=== PATIENT | male | born 1945 | race African-American/Black ===

== ENCOUNTER 2016-12-04 08:50 | Emergency (ER) | payer MEDICARE ==
[2011-03-17 12:37] VITALS: BMI 23.0
== END 2016-12-04 10:48 | disposition home or self-care (01) ==
LOC: D.ER 08:50
DX: T16.1XXA Foreign body in right ear, initial encounter (principal); X58.XXXA Exposure to other specified factors, initial encounter; Y93.89 Activity, other specified; Y92.019 Unspecified place in single-family (private) house as the place of occurrence of the external cause; F17.200 Nicotine dependence, unspecified, uncomplicated; K21.9 Gastro-esophageal reflux disease without esophagitis; I10 Essential (primary) hypertension; E88.09 Other disorders of plasma-protein metabolism, not elsewhere classified

== ENCOUNTER 2017-12-29 23:04 | Observation (INO) | payer MEDICARE ==
[~2017-12-29] VITALS: Ht 157.5 cm; Wt 56.7 kg
[2017-12-29 23:48] LABS: BASOPHILS 1.2 % (0-2); EOSINOPHILS 3.2 % (0-7); HEMATOCRIT 41.9 % (42.0-54.0); HEMOGLOBIN 14.5 g/dL (13.5-17.5); LYMPHOCYTES 47.2 % (15-50); MCH 28.8 pg (26.0-34.0); MCHC 34.6 g/dL (31.0-37.0); MCV 83.3 fL (80.0-100.0); MEAN PLATELET VOLUME 11.4 fL (7.4-10.4); MONOCYTES 14.1 % (2-11); NEUTROPHILS 34.3 % (40-80); RBC 5.03 10x6/uL (4.20-6.10); RDW 14.5 % (11.5-14.5); WBC 3.4 10x3/uL (4.8-10.8)
[2017-12-29 23:49] LABS: PLATELET COUNT 194 10x3/uL (130-400)
[2017-12-29 23:56] LABS: INR 1.01 (0.85-1.17); PROTIME 12.9 SECONDS (11.6-15.0)
[2017-12-30 00:21] LABS: APPEARANCE CLEAR (CLEAR); BILIRUBIN NEGATIVE (NEGATIVE); COLOR YELLOW (YELLOW); GLUCOSE NEGATIVE (NEGATIVE); KETONE NEGATIVE (NEGATIVE); NITRITE NEGATIVE (NEGATIVE); PROTEIN NEGATIVE (NEGATIVE); SPECIFIC GRAVITY 1.025 (1.005-1.020)
[2017-12-30 00:30] LABS: ALBUMIN 3.7 g/dL (3.4-5.0); ALKALINE PHOSPHATASE 84 U/L (46-116); ALT (SGPT) 24 U/L (10-68); AMYLASE - SERUM 111 U/L (25-115); BILIRUBIN - TOTAL 0.57 mg/dL (0.2-1.3); C-REACTIVE PROTEIN 0.4 mg/dL (0.0-0.9); CALC OSMOLALITY 275 mosm/kg (275-300); CARBON DIOXIDE 27.8 mmol/L (21.0-32.0); CHLORIDE - SERUM 101 mmol/L (98-107); CREATINE KINASE 519 UL (21-232); CREATININE - SERUM 1.1 mg/dL (0.6-1.3); GLUCOSE 105 mg/dL (74-106); LIPASE 157 U/L (73-393); MAGNESIUM - SERUM 2.3 mg/dL (1.8-2.4); PRO BNP 38 pg/mL (0-125); PROTEIN - SERUM 7.9 g/dL (6.4-8.2); SODIUM 139 mmol/L (136-145); UREA NITROGEN 8 mg/dL (7-18); eGFR NON AFRICAN AMERICAN 69 mL/min (90-120)
[2017-12-30 00:34] LABS: POTASSIUM - SERUM 2.7 mmol/L (3.5-5.1); TROPONIN-I < 0.017 ng/mL (0.000-0.060)
[2017-12-30 00:35] LABS: CKMB 2.3 U/L (0.0-3.6)
[2017-12-30] MEDS ORDERED: REGLAN10 MG PO (03:20)
[2017-12-30 06:30] VITALS: Ht 157.5 cm; Wt 56.7 kg
[2017-12-30 08:29] LABS: BASOPHILS 0.9 % (0-2); EOSINOPHILS 2.2 % (0-7); HEMATOCRIT 35.8 % (42.0-54.0); HEMOGLOBIN 12.4 g/dL (13.5-17.5); LYMPHOCYTES 45.5 % (15-50); MCH 28.8 pg (26.0-34.0); MCHC 34.6 g/dL (31.0-37.0); MCV 83.1 fL (80.0-100.0); MEAN PLATELET VOLUME 11.3 fL (7.4-10.4); MONOCYTES 12.2 % (2-11); NEUTROPHILS 39.2 % (40-80); PLATELET COUNT 168 10x3/uL (130-400); RBC 4.31 10x6/uL (4.20-6.10); RDW 14.2 % (11.5-14.5); WBC 3.2 10x3/uL (4.8-10.8)
[2017-12-30 08:46] LABS: ALKALINE PHOSPHATASE 66 U/L (46-116); ALT (SGPT) 20 U/L (10-68); BILIRUBIN - TOTAL 0.64 mg/dL (0.2-1.3); CARBON DIOXIDE 27.3 mmol/L (21.0-32.0); CHLORIDE - SERUM 106 mmol/L (98-107); CREATININE - SERUM 0.9 mg/dL (0.6-1.3); GLUCOSE 94 mg/dL (74-106); PROTEIN - SERUM 6.8 g/dL (6.4-8.2); SODIUM 142 mmol/L (136-145); eGFR NON AFRICAN AMERICAN 88 mL/min (90-120)
[2017-12-30 08:49] LABS: CALC OSMOLALITY 279 mosm/kg (275-300); UREA NITROGEN 5 mg/dL (7-18)
[2017-12-30 08:50] LABS: POTASSIUM - SERUM 2.8 mmol/L (3.5-5.1)
[2017-12-30 09:20] VITALS: BP 148/883
[2017-12-30 11:43] VITALS: BP 170/71
[2017-12-30 20:00] VITALS: BP 174/88
[2017-12-31] VITALS: BP 192/90
[2017-12-31 04:00] VITALS: BP 162/91
[2017-12-31 05:10] LABS: BASOPHILS 0.2 % (0-2); EOSINOPHILS 1.9 % (0-7); IMMATURE GRANULOCYTES 0.2 % (0-5); LYMPHOCYTES 23.8 % (15-50); MCH 28.8 pg (26.0-34.0); MCHC 34.1 g/dL (31.0-37.0); MCV 84.4 fL (80.0-100.0); MEAN PLATELET VOLUME 11.3 fL (7.4-10.4); MONOCYTES 9.5 % (2-11); NEUTROPHILS 64.4 % (40-80); PLATELET COUNT 168 10x3/uL (130-400); RBC 4.86 10x6/uL (4.20-6.10); RDW 14.2 % (11.5-14.5)
[2017-12-31 05:11] LABS: WBC 4.3 10x3/uL (4.8-10.8)
[2017-12-31 05:40] LABS: ALBUMIN 3.1 g/dL (3.4-5.0); ALKALINE PHOSPHATASE 75 U/L (46-116); ALT (SGPT) 23 U/L (10-68); BILIRUBIN - TOTAL 0.52 mg/dL (0.2-1.3); CALC OSMOLALITY 279 mosm/kg (275-300); CALCIUM 8.2 mg/dL (8.5-10.1); CARBON DIOXIDE 27.4 mmol/L (21.0-32.0); CHLORIDE - SERUM 104 mmol/L (98-107); GLUCOSE 129 mg/dL (74-106); POTASSIUM - SERUM 2.8 mmol/L (3.5-5.1); PROTEIN - SERUM 7.3 g/dL (6.4-8.2); SODIUM 141 mmol/L (136-145); UREA NITROGEN 4 mg/dL (7-18); eGFR NON AFRICAN AMERICAN 78 mL/min (90-120)
[2017-12-31] MEDS ORDERED: CARAFATE1 G/10 ML PO (07:02)
[2017-12-31] MEDS ORDERED: PROTONIX40 MG PO (07:04)
[2017-12-31] MEDS ORDERED: PEPCID20 MG PO (07:05)
[2017-12-31 09:01] VITALS: BP 156/87
[2017-12-31 15:45] VITALS: BP 158/73
== END 2017-12-31 18:24 | disposition home or self-care (01) ==
LOC: D.ER 23:04 → D.M2 12-30 02:49 → OBSVTIME 12-30 02:49 → D.M2 12-31 18:24
PROVIDERS: Family Medicine; Nurse Practitioner Family
DX: K22.2 Esophageal obstruction (principal); K59.8 Other specified functional intestinal disorders; T18.128A Food in esophagus causing other injury, initial encounter; X58.XXXA Exposure to other specified factors, initial encounter; E87.6 Hypokalemia; I10 Essential (primary) hypertension; Z95.0 Presence of cardiac pacemaker

== ENCOUNTER 2018-01-13 19:28 | Emergency (ER) | payer MEDICARE ==
[~2018-01-13 19:28] MED LIST: CARAFATE1 G/10 ML PO; PEPCID20 MG PO; PROTONIX40 MG PO; REGLAN10 MG PO
[2018-01-13 19:53] LABS: BASOPHILS 0.5 % (0-2); EOSINOPHILS 2.4 % (0-7); HEMATOCRIT 38.5 % (42.0-54.0); HEMOGLOBIN 13.1 g/dL (13.5-17.5); LYMPHOCYTES 27.1 % (15-50); MCV 85.4 fL (80.0-100.0); MONOCYTES 11.2 % (2-11); NEUTROPHILS 58.8 % (40-80); PLATELET COUNT 178 10x3/uL (130-400); RBC 4.51 10x6/uL (4.20-6.10); RDW 15.2 % (11.5-14.5); WBC 4.1 10x3/uL (4.8-10.8)
[2018-01-13 20:04] LABS: APPEARANCE CLEAR (CLEAR); BILIRUBIN NEGATIVE (NEGATIVE); COLOR YELLOW (YELLOW); GLUCOSE NEGATIVE (NEGATIVE); KETONE NEGATIVE (NEGATIVE); NITRITE NEGATIVE (NEGATIVE); PROTEIN NEGATIVE (NEGATIVE); SPECIFIC GRAVITY 1.025 (1.005-1.020); UROBILINOGEN NORMAL (NORMAL)
[2018-01-13 20:09] LABS: BACTERIA MODERATE /hpf (NONE SEEN); EPITHELIAL CELLS OCC /hpf (0-5); MUCUS >1+ /lpf (NONE SEEN); RED CELLS - URINE 0-5 /hpf (0-5); WHITE CELLS - URINE 0-5 /hpf (0-5)
[2018-01-13 20:17] LABS: ALKALINE PHOSPHATASE 69 U/L (46-116); ALT (SGPT) 18 U/L (10-68); BILIRUBIN - TOTAL 0.52 mg/dL (0.2-1.3); CALC OSMOLALITY 278 mosm/kg (275-300); CALCIUM 8.3 mg/dL (8.5-10.1); CHLORIDE - SERUM 108 mmol/L (98-107); CREATININE - SERUM 1.1 mg/dL (0.6-1.3); GLUCOSE 108 mg/dL (74-106); POTASSIUM - SERUM 3.4 mmol/L (3.5-5.1); PROTEIN - SERUM 7.3 g/dL (6.4-8.2); SODIUM 141 mmol/L (136-145); UREA NITROGEN 5 mg/dL (7-18); eGFR NON AFRICAN AMERICAN 69 mL/min (90-120)
[2018-01-13 20:24] LABS: CREATINE KINASE 85 UL (21-232); PRO BNP 59 pg/mL (0-125)
[2018-01-13 20:28] LABS: TROPONIN-I < 0.017 ng/mL (0.000-0.060)
== END 2018-01-13 22:45 | disposition home or self-care (01) ==
LOC: D.ER 19:28
PROVIDERS: Family Medicine
DX: R53.1 Weakness (principal); N39.0 Urinary tract infection, site not specified; R11.0 Nausea; I10 Essential (primary) hypertension

== ENCOUNTER 2018-01-17 10:53 | Day surgery (SDC) | payer MEDICARE ==
--- NOTE | ~2018-01-17 | OP ---
PATIENT NAME: VALORIE SHEPHERD MEDICAL RECORD: [id number] :41 LOCATION:[facility] ADMISSION DATE: SURGEON: VI FRIAS MD DATE OF OPERATION: 01/17/2018 PROCEDURE: EGD with balloon dilatation. EGD with biopsy. SURGEON: Vi Frias MD, gastroenterology SCOPE: Olympus video gastroscope and a CRE Microvasive balloon to 25-Tajik. INDICATION FOR THIS PROCEDURE: The patient has significant ongoing dysphagia with achalasia, distal esophageal stricture, and was recently seen on 12/30/2017 for removal of a food impaction from the distal esophageal area. At that time, we attempted to address the distal esophageal stricture. I believe this is a benign stricture, which is recurring. The patient had a TIVA anesthesia for this procedure and received 180 mg of propofol, O2 at 4 liters. FINDINGS: Informed consent was given. The patient was made comfortable with the above medications. After reaching an adequate level of sedation by slow IV push, the patient was placed on his left side. The endoscope was then advanced under direct visualization through the posterior pharyngeal area and immediately we noted a copious amount of thick retained saliva and liquids. This was quickly suctioned. It did encompass the entire esophagus from 20-40 cm. After removal of this impaction of food as well as thickened saliva, we did identify the distal esophageal stricture, which was very edematous and erythematous and certainly narrowed. We placed a CRE Microvasive balloon through this area and gently dilated sequentially over a 3-4 minute. We went from 18-Tajik to 25-Tajik, holding the balloon every couple centimeters for at least a minute. After removal of the balloon, we attempted to advance the scope through this area, but due to angulation, we were unable to push into the cardia. We did biopsy the tissue and the scope was then withdrawn. IMPRESSION: 1. Global food impaction with liquid food as well as thickened saliva from 20 cm in the upper esophageal sphincter to the distal esophageal sphincter at 40 cm. 2. The area of erythematous and inflamed distal esophageal stricture gently dilated from 18-Tajik to 25-Tajik, but we were unable to pass the scope through this area and biopsies were obtained. PLAN: We will continue the patient's present medications to include Protonix at a dose of 40 mg p.o. b.i.d., Carafate slurry 1 gram p.o. q.i.d., famotidine 20 mg b.i.d. We will repeat the EGD in 2 weeks to again attempt to dilate the distal esophageal area. The patient should follow a strict full liquid diet. No anti-inflammatory drugs or aspirin please. TRANSINT:[id number] Voice Confirmation ID: [id number] DOCUMENT ID: [id number] OPERATIVE REPORT [id number] VALORIE SHEPHERD BRENDA MD at 1543 CC: [id number] DICTATION DATE: 01/17/18 1506 PRELIMINARY SCHOOL PSYCHOLOGIST: 01/17/18 1601 [facility] 01/17/18 [id number] [place] [address]
[2018-01-17 12:21] LABS: HEMATOCRIT 40.3 % (42.0-54.0); HEMOGLOBIN 13.7 g/dL (13.5-17.5); MCV 85.4 fL (80.0-100.0); RBC 4.72 10x6/uL (4.20-6.10); RDW 15.4 % (11.5-14.5); WBC 3.8 10x3/uL (4.8-10.8)
[2018-01-17 12:25] VITALS: BP 149/79; BMI 21.4
[2018-01-17] MEDS ORDERED: NORVASC10 MG PO (12:27)
[2018-01-17] MEDS ORDERED: LEVAQUIN500 MG PO (12:28)
[2018-01-17] MEDS ORDERED: ZOFRAN4 MG PO (12:30)
[2018-01-17 12:45] LABS: ANION GAP 12.7 mmol/L (8-16); CALCIUM 8.9 mg/dL (8.5-10.1); CARBON DIOXIDE 26.6 mmol/L (21.0-32.0); CREATININE - SERUM 1.1 mg/dL (0.6-1.3); POTASSIUM - SERUM 3.3 mmol/L (3.5-5.1)
== END 2018-01-17 16:30 | disposition home or self-care (01) ==
LOC: D.OPS 10:53
PROVIDERS: Anesthesiology
DX: R13.10 Dysphagia, unspecified (principal); K22.0 Achalasia of cardia; K22.2 Esophageal obstruction; I10 Essential (primary) hypertension; K21.9 Gastro-esophageal reflux disease without esophagitis; Z01.812 Encounter for preprocedural laboratory examination

== ENCOUNTER 2018-01-29 09:43 | Day surgery (SDC) | payer MEDICARE ==
[~2018-01-29] VITALS: Ht 158.8 cm; Wt 50.5 kg
--- NOTE | ~2018-01-29 | OP ---
PATIENT NAME: VALORIE SHEPHERD MEDICAL RECORD: [id number] :43 LOCATION:[facility] ADMISSION DATE: SURGEON: VI FRIAS MD DATE OF OPERATION: 01/29/2018 PROCEDURE: EGD with balloon dilatation. SHIPPING SUPPORT: Vi Frias MD SCOPE: Olympus video colonoscope. MEDICATIONS: Per TIVA anesthesia. The patient received propofol 260 mg IV push, O2 of 4 liters. INDICATION FOR TIVA: COPD, smoker, coronary artery disease, pacemaker placement. INDICATION FOR THE PROCEDURE: Achalasia with a very thick tight distal esophageal stricture. The patient will require sequential EGDs with graduated balloon dilatation. FINDINGS: Informed consent was given. The patient was made comfortable with the above medications. After reaching an adequate level of sedation by slow IV push, the patient was placed on his left side. The endoscope was then advanced under direct visualization through the posterior pharyngeal area and from the upper esophageal sphincter to the distal esophageal sphincter at 40 cm, the patient had a copious amount of retained fluid. This was quickly suctioned from the entire esophagus. Also, noted was the presence of some corn kernels which were unable to be removed through the endoscope. We adjusted the patient's position in the bed to a more upright and then gently placed our first balloon to 18-Ecuadorean and proceeded gradually to increase the size of the balloon to 33-Ecuadorean. The patient continues to smoke. He has significant COPD. We felt that the risk of the procedure was needed to be accounted for in the timing and length of this endoscopy and we decided to stop dilatation at that point. We did dilate to 33-Ecuadorean. Of note, the patient's distal esophageal tissue is very tight and not very distensible and there was percy hemorrhage in this area noted before we began to dilate the tissue. There was no Misti-Hilton tear during or after the procedure. Observed, the patient does have a hiatal hernia. We then withdrew the scope. IMPRESSION: 1. Patient with condition of achalasia with a markedly dilated nonfunctioning esophagus. There was no peristalsis observed. 2. Hemorrhagic esophagitis noted at the lower esophageal sphincter with a very tight nondistensible stricture observed. 3. Balloon dilatation from 18 to 33-Ecuadorean. With a few puffs of air this did relax more and I think the patient might be able to start a very soft diet. We would not want the patient to advance the on the consistency of mashed potatoes. He obviously is not following the rules as he has been on a full liquid diet and we do see corn in the distal esophageal area. 4. There is no anti-inflammatory drugs, please continue the present medications which include Protonix 40 mg in the morning, famotidine 20 mg at night, and Carafate slurry 1 gram p.o. q.i.d. He should dissolve the tablet in water and drink this 4 times a day. The patient should stop tobacco products. He has been asked to do this repeatedly. OPERATIVE REPORT [id number] VALORIE SHEPHERD 5. I think we are reaching the point where surgical consultation is necessary. All further EGDs will need to be done with the patient intubated to protect his airway as he does not follow the dietary restrictions, which has been explained to him in detail. 6. I spoke with Dr. Cesar today. He wishes me to send this gentleman to Dr. RU Gore and both of these physicians will work together to determine plan which might include an esophagectomy versus myotomy, which will not solve the problem of motility. The patient has very few options at this point, we will refer him to Dr. Gore for his expertise in this matter. TRANSINT:[id number] Voice Confirmation ID: [id number] DOCUMENT ID: [id number] VI FRIAS MD at 1540 CC: LESLI CESAR and TICO GORE MD [id number] DICTATION DATE: 01/29/18 1305 CHIEF CONTROLLER TOWER: 01/29/18 1344 [facility] 01/29/18 [facility] [address] [place] [address]
[~2018-01-29 09:43] MED LIST changes: +LEVAQUIN500 MG PO; +NORVASC10 MG PO; +ZOFRAN4 MG PO
[2018-01-29 10:22] LABS: HEMATOCRIT 39.9 % (42.0-54.0); HEMOGLOBIN 13.5 g/dL (13.5-17.5); MCH 29.2 pg (26.0-34.0); MCHC 33.8 g/dL (31.0-37.0); MCV 86.2 fL (80.0-100.0); MEAN PLATELET VOLUME 10.1 fL (7.4-10.4); RBC 4.63 10x6/uL (4.20-6.10); RDW 14.6 % (11.5-14.5)
[2018-01-29] MEDS ORDERED: CARAFATE1 G PO (10:36)
[2018-01-29] MEDS ORDERED: PEPCID20 MG PO (10:37)
[2018-01-29] MEDS ORDERED: PANTOPRAZOLE TAB 40M (10:38)
[2018-01-29 10:58] VITALS: BP 143/77; Ht 158.8 cm; Wt 50.5 kg
== END 2018-01-29 16:43 | disposition home or self-care (01) ==
LOC: D.OPS 09:43
PROVIDERS: Anesthesiology
DX: K22.2 Esophageal obstruction (principal); K22.0 Achalasia of cardia; J44.9 Chronic obstructive pulmonary disease, unspecified; F17.200 Nicotine dependence, unspecified, uncomplicated; I25.10 Atherosclerotic heart disease of native coronary artery without angina pectoris; Z95.0 Presence of cardiac pacemaker; K21.9 Gastro-esophageal reflux disease without esophagitis; Z01.812 Encounter for preprocedural laboratory examination

== ENCOUNTER 2018-10-09 23:10 | Inpatient (IN) | payer MEDICARE ==
[~2018-10-09] VITALS: Ht 158.8 cm; Wt 48.7 kg
--- NOTE | ~2018-10-09 | MORECARE ---
CASE MANAGEMENT DISCHARGE SUMMARY PATIENT: VALORIE SHEPHERD UNIT: [id number] ADM DATE: 10/10/18 AGE: 73 : 43 SEX: M ROOM/BED: D.2108 AUTHOR: KELSY,DOC PHYSICIAN: REFERRING PHYSICIAN: VAN HOLLIDAY MD DATE OF SERVICE: 10/16/18 Discharge Plan Patient Name: VALORIE SHEPHERD Facility: [facility]:[place] : 1945 Planned Disposition: Home Anticipated Discharge Date: 10/16/18 Discharge Date: Expected LOS: 6 Initial Reviewer: [email or web address] Initial Review Date: 10/16/2018 Generated: 10/16/18 1:10 pm Comments DCP- Discharge Planning Updated by [email or web address]: Keyshawn Sims on 10/16/18 11:[address] Patient Name: VALORIE SHEPHERD Admission Status: ER Accout number: [id number] Admission Date: 10-10-2018 : 1945 Admission Diagnosis:SEPSIS, UNSPECIFIED ORGANISM Attending: VAN HOLLIDAY Current LOS: 6 Anticipated DC Date: 10-16-2018 Planned Disposition: Home Primary Insurance: MEDICARE A & B Discharge Planning Comments: CM MET WITH PT IN ROOM TO DISCUSS DISCHARGE PLANNING AND NEEDS. PT REPORTS LIVING AT HOME INDEPENDENTLY AND ALONE; PT'S SON IS "IN AND OUT" OF THE HOME AND PT REPORTS HE CONSIDERS THAT HIS SON ACTUALLY LIVES IN PT'S HOME. PT HAS NO MEDICAL EQUIPMENT AND NO OUTSIDE SERVICES ASSISTING IN THE HOME. CM DISCUSSED AVAILABILITY OF HOME HEALTH, REHAB SERVICES AND MEDICAL EQUIPMENT. PT DENIES DISCHARGE NEEDS, REPORTS HIS SON WILL PICK HIM UP FOR DISCHARGE HOME TODAY. IMPORTANT MESSAGE FROM MEDICARE PROVIDED AND EXPLAINED. EMISSIONS TESTING TECHNICIAN NURSE NOTIFIED. Paragliding Instructor: Keyshawn Sims DCPIA - Discharge Planning Initial Assessment Updated by [id number]: Keyshawn Sims on 10/16/18 12:01 pm * Is the patient Alert and Oriented? Yes * How many steps to enter\\exit or inside your home? NONE * PCP DR. LIVINGSTON * Pharmacy [facility] [address] * Preadmission Environment Home with Family * ADLs Independent * Equipment None * Other Equipment [employer], PREFERRED EQUIPMENT PROVIDER * List name and contact numbers for known caregivers / representatives who currently or will assist patient after discharge: KELSI SHEPHERD, SON, * Verbal permission to speak to the caregivers and representatives has been obtained from the patient. N/A * Community resources currently utilized None * Please name any agencies selected above. NONE * Additional services required to return to the preadmission environment? No * Can the patient safely return to the preadmission environment? Yes * Has this patient been hospitalized within the prior 30 days at any hospital? No Coverage Notice Reviewer: [id number] Ruthann Sims Notice Issued Date-Time: 10/16/2018 11:45 Notice Type: IM Discharge Notice Notice Delivered To: Patient Relationship to Patient: Senior Qa Analyst Name: Delivery Method: HAND - Hand Delivered Halley Days: Prior Verbal Notification: Recipient Understood Notice: Yes Recipient Signature: Yes Med Rec Note Co-signed by Attending: Coverage Notice Comment: Last DP export: 10/16/18 11:01 Patient Name: VALORIE SHEPHERD Page [phone] at 1210 All edits/amendments must be made on the electronic document DICTATION DATE: 10/16/181208 COMPUTER SCIENCES PROFESSOR: SELENE 10/16/18 120 RPT#: [id number] DC DATE: STATUS: ADM IN [facility] [address] [place] [address] END OF REPORT
--- NOTE | ~2018-10-09 | MORECARE ---
CASE MANAGEMENT DISCHARGE SUMMARY PATIENT: VALORIE SHEPHERD UNIT: [id number] ADM DATE: 10/10/18 AGE: 73 : 43 SEX: M ROOM/BED: D.2108 AUTHOR: YAMILEX TIERNEY PHYSICIAN: REFERRING PHYSICIAN: VAN HOLLIDAY MD DATE OF SERVICE: 10/16/18 Discharge Plan Patient Name: VALORIE SHEPHERD [facility] [facility] 1945 Planned Disposition: Home Anticipated Discharge Date: 10/16/18 Discharge Date: Expected LOS: 6 Initial Reviewer: [email or web address] Initial Review Date: 10/16/2018 Generated: 10/16/18 1:01 pm Coverage Notice Reviewer: [email or web address] - Keyshawn Sims Notice Issued Date-Time: 10/16/2018 11:45 Notice Type: IM Discharge Notice Notice Delivered To: Patient Relationship to Patient: Motor Lodge Clerk Name: Delivery Method: HAND - Hand Delivered Halley Days: Prior Verbal Notification: Recipient Understood Notice: Yes Recipient Signature: Yes Med Rec Note Co-signed by Attending: Coverage Notice Comment: Patient Name: VALORIE SHEPHERD Page [phone] at 1201 All edits/amendments must be made on the electronic document DICTATION DATE: 10/16/18 1200 GARNETT FEEDER: SELENE 10/16/18 1200 RPT#: [id number] DC DATE: STATUS: ADM IN [facility] [address] [place] [address] END OF REPORT
[~2018-10-09 23:10] MED LIST changes: +CARAFATE1 G PO; +PANTOPRAZOLE TAB 40M
[2018-10-09] MEDS ORDERED: LISINOPRIL5 MG PO (23:15)
[2018-10-09] MEDS ORDERED: DESERYL50 M2 PO (23:16)
[2018-10-09] MEDS ORDERED: OMEPRAZOLE20 M1 PO (23:16)
[2018-10-09] MEDS ORDERED: K-TAB10 MEQ PO (23:16)
[2018-10-09 23:57] LABS: HEMATOCRIT 40.4 % (42.0-54.0); HEMOGLOBIN 13.6 g/dL (13.5-17.5); MCH 30.6 pg (26.0-34.0); MCHC 33.7 g/dL (31.0-37.0); MEAN PLATELET VOLUME 10.6 fL (7.4-10.4); PLATELET COUNT 229 10x3/uL (130-400); RBC 4.44 10x6/uL (4.20-6.10); RDW 15.9 % (11.5-14.5); WBC 20.4 10x3/uL (4.8-10.8)
[2018-10-10 00:28] LABS: LYMPHOCYTES 5 % (15-50); MONOCYTES 2 % (2-11); NEUTROPHILS 84 % (40-80); PLATELET ESTIMATE NORMAL
[2018-10-10 00:39] LABS: ALBUMIN 3.5 g/dL (3.4-5.0); ALKALINE PHOSPHATASE 112 U/L (46-116); ALT (SGPT) 51 U/L (10-68); CALC OSMOLALITY 285 mosm/kg (275-300); CALCIUM 9.5 mg/dL (8.5-10.1); CARBON DIOXIDE 22.9 mmol/L (21.0-32.0); CHLORIDE - SERUM 102 mmol/L (98-107); CREATININE - SERUM 1.5 mg/dL (0.6-1.3); GLUCOSE 110 mg/dL (74-106); LIPASE 194 U/L (73-393); POTASSIUM - SERUM 4.2 mmol/L (3.5-5.1); PROTEIN - SERUM 8.1 g/dL (6.4-8.2); SODIUM 141 mmol/L (136-145); TROPONIN-I < 0.017 ng/mL (0.000-0.060); UREA NITROGEN 24 mg/dL (7-18); eGFR NON AFRICAN AMERICAN 48 mL/min (90-120)
[2018-10-10 00:41] LABS: AMYLASE - SERUM 422 U/L (25-115)
[2018-10-10 02:25] LABS: APPEARANCE CLEAR (CLEAR); COLOR YELLOW (YELLOW); SPECIFIC GRAVITY 1.015 (1.005-1.020)
[2018-10-10 02:26] LABS: BILIRUBIN NEGATIVE (NEGATIVE); GLUCOSE NEGATIVE (NEGATIVE); KETONE NEGATIVE (NEGATIVE); NITRITE NEGATIVE (NEGATIVE); PROTEIN TRACE mg/dL (NEGATIVE); UROBILINOGEN NORMAL (NORMAL)
[2018-10-10 02:27] LABS: BACTERIA FEW /hpf (NONE SEEN); EPITHELIAL CELLS 0-5 /hpf (0-5); RED CELLS - URINE 0-5 /hpf (0-5); WHITE CELLS - URINE 0-5 /hpf (0-5)
[2018-10-10 02:28] LABS: GRANULAR CAST 0-5 /lpf (NONE SEEN)
[2018-10-10 05:58] VITALS: BP 109/69
[2018-10-10 08:19] VITALS: BP 100/50
[2018-10-10 11:02] VITALS: BP 102/50
[2018-10-10 15:02] VITALS: BP 100/50
[2018-10-11] VITALS (13 sets, daily range): BP systolic 80–163; BP diastolic 47–87; Ht 158.8 cm; Wt 48.7 kg
[2018-10-11 05:27] LABS: ANION GAP 17.8 mmol/L (8-16); BILIRUBIN - TOTAL 0.28 mg/dL (0.2-1.3); CALCIUM 7.9 mg/dL (8.5-10.1); CARBON DIOXIDE 17.2 mmol/L (21.0-32.0); CREATININE - SERUM 1.2 mg/dL (0.6-1.3); MAGNESIUM - SERUM 3.2 mg/dL (1.8-2.4); PHOSPHOROUS 3.4 mg/dL (2.5-4.9)
[2018-10-11 05:33] LABS: ALBUMIN 2.1 g/dL (3.4-5.0); PROTEIN - SERUM 5.5 g/dL (6.4-8.2)
[2018-10-11 06:18] LABS: BASOPHILS 0 % (0-2); EOSINOPHILS 0 % (0-7); HEMOGLOBIN 7.9 g/dL (13.5-17.5); IMMATURE GRANULOCYTES 0.3 % (0-5); LYMPHOCYTES 4.7 % (15-50); MCH 30.5 pg (26.0-34.0); MCHC 34.3 g/dL (31.0-37.0); MCV 88.8 fL (80.0-100.0); MEAN PLATELET VOLUME 10.6 fL (7.4-10.4); MONOCYTES 7.5 % (2-11); NEUTROPHILS 87.5 % (40-80); PLATELET COUNT 173 10x3/uL (130-400); RBC 2.59 10x6/uL (4.20-6.10); RDW 16.1 % (11.5-14.5); WBC 20.2 10x3/uL (4.8-10.8)
[2018-10-11 12:57] LABS: BASOPHILS 0.1 % (0-2); EOSINOPHILS 0.1 % (0-7); IMMATURE GRANULOCYTES 0.5 % (0-5); INR 1.22 (0.85-1.17); MCH 30.1 pg (26.0-34.0); MCV 88.5 fL (80.0-100.0); MEAN PLATELET VOLUME 10.5 fL (7.4-10.4); MONOCYTES 8.8 % (2-11); NEUTROPHILS 83.5 % (40-80); PLATELET COUNT 150 10x3/uL (130-400); PROTIME 14.8 SECONDS (11.6-15.0); RBC 2.26 10x6/uL (4.20-6.10); RDW 16.1 % (11.5-14.5); WBC 17.8 10x3/uL (4.8-10.8)
[2018-10-11 12:59] LABS: HEMOGLOBIN 6.8 g/dL (13.5-17.5)
[2018-10-11 15:38] LABS: HEMATOCRIT 29.4 % (42.0-54.0)
[2018-10-11 18:13] LABS: HEMATOCRIT 29.7 % (42.0-54.0); HEMOGLOBIN 10.2 g/dL (13.5-17.5)
[2018-10-12] VITALS (21 sets, daily range): BP systolic 103–145; BP diastolic 61–112
[2018-10-12 03:52] LABS: BASOPHILS 0.2 % (0-2); EOSINOPHILS 0.3 % (0-7); HEMATOCRIT 26.5 % (42.0-54.0); HEMOGLOBIN 9.1 g/dL (13.5-17.5); IMMATURE GRANULOCYTES 0.8 % (0-5); LYMPHOCYTES 8.2 % (15-50); MCH 29.7 pg (26.0-34.0); MCHC 34.3 g/dL (31.0-37.0); MCV 86.6 fL (80.0-100.0); MEAN PLATELET VOLUME 11.1 fL (7.4-10.4); MONOCYTES 8.9 % (2-11); NEUTROPHILS 81.6 % (40-80); PLATELET COUNT 128 10x3/uL (130-400); RBC 3.06 10x6/uL (4.20-6.10); RDW 15.5 % (11.5-14.5); WBC 13.1 10x3/uL (4.8-10.8)
[2018-10-12 04:02] LABS: CALC OSMOLALITY 294 mosm/kg (275-300); CALCIUM 7.9 mg/dL (8.5-10.1); CARBON DIOXIDE 20.7 mmol/L (21.0-32.0); CHLORIDE - SERUM 115 mmol/L (98-107); CREATININE - SERUM 0.9 mg/dL (0.6-1.3); GLUCOSE 103 mg/dL (74-106); LIPASE 84 U/L (73-393); POTASSIUM - SERUM 3.7 mmol/L (3.5-5.1); SODIUM 145 mmol/L (136-145); UREA NITROGEN 29 mg/dL (7-18); eGFR NON AFRICAN AMERICAN 87 mL/min (90-120)
[2018-10-12 09:59] LABS: HEMATOCRIT 29.9 % (42.0-54.0); HEMOGLOBIN 10.2 g/dL (13.5-17.5)
[2018-10-12 17:18] LABS: HEMOGLOBIN 11.3 g/dL (13.5-17.5)
[2018-10-13] VITALS (13 sets, daily range): BP systolic 113–145; BP diastolic 78–100
[2018-10-13 03:45] LABS: BASOPHILS 0.3 % (0-2); EOSINOPHILS 0.6 % (0-7); HEMATOCRIT 31.3 % (42.0-54.0); HEMOGLOBIN 10.8 g/dL (13.5-17.5); IMMATURE GRANULOCYTES 0.4 % (0-5); MCH 29.6 pg (26.0-34.0); MCHC 34.5 g/dL (31.0-37.0); MCV 85.8 fL (80.0-100.0); MONOCYTES 9.3 % (2-11); NEUTROPHILS 78.4 % (40-80); PLATELET COUNT 140 10x3/uL (130-400); RBC 3.65 10x6/uL (4.20-6.10); RDW 15.3 % (11.5-14.5); WBC 10.9 10x3/uL (4.8-10.8)
[2018-10-13 03:58] LABS: CALC OSMOLALITY 285 mosm/kg (275-300); CALCIUM 8.2 mg/dL (8.5-10.1); CARBON DIOXIDE 23.3 mmol/L (21.0-32.0); CHLORIDE - SERUM 113 mmol/L (98-107); CREATININE - SERUM 0.9 mg/dL (0.6-1.3); GLUCOSE 102 mg/dL (74-106); POTASSIUM - SERUM 3.5 mmol/L (3.5-5.1); SODIUM 144 mmol/L (136-145); UREA NITROGEN 11 mg/dL (7-18); eGFR NON AFRICAN AMERICAN 87 mL/min (90-120)
[2018-10-14 00:30] VITALS: BP 132/66
[2018-10-14 04:30] VITALS: BP 137/78
[2018-10-14 05:10] LABS: BASOPHILS 0.2 % (0-2); EOSINOPHILS 1.6 % (0-7); HEMATOCRIT 33.2 % (42.0-54.0); HEMOGLOBIN 11.4 g/dL (13.5-17.5); IMMATURE GRANULOCYTES 0.4 % (0-5); MCH 29.4 pg (26.0-34.0); MCHC 34.3 g/dL (31.0-37.0); MCV 85.6 fL (80.0-100.0); MEAN PLATELET VOLUME 10.6 fL (7.4-10.4); MONOCYTES 7.7 % (2-11); NEUTROPHILS 72.1 % (40-80); PLATELET COUNT 168 10x3/uL (130-400); RBC 3.88 10x6/uL (4.20-6.10); RDW 15.2 % (11.5-14.5)
[2018-10-14 05:16] LABS: WBC 8.1 10x3/uL (4.8-10.8)
[2018-10-14 05:27] LABS: CALCIUM 7.7 mg/dL (8.5-10.1); CARBON DIOXIDE 22.2 mmol/L (21.0-32.0); CHLORIDE - SERUM 115 mmol/L (98-107); GLUCOSE 94 mg/dL (74-106); SODIUM 148 mmol/L (136-145); eGFR NON AFRICAN AMERICAN 77 mL/min (90-120)
[2018-10-14 05:29] LABS: CALC OSMOLALITY 291 mosm/kg (275-300); UREA NITROGEN 6 mg/dL (7-18)
[2018-10-14 05:31] LABS: POTASSIUM - SERUM 2.7 mmol/L (3.5-5.1)
[2018-10-14 09:31] VITALS: BP 153/73
[2018-10-14 11:35] VITALS: BP 146/77
[2018-10-14 16:36] VITALS: BP 165/71
[2018-10-14 19:00] VITALS: BP 169/141
[2018-10-15 01:37] VITALS: BP 135/65
[2018-10-15 05:38] LABS: BASOPHILS 0.2 % (0-2); EOSINOPHILS 2.3 % (0-7); HEMATOCRIT 33.1 % (42.0-54.0); HEMOGLOBIN 11.2 g/dL (13.5-17.5); IMMATURE GRANULOCYTES 0.3 % (0-5); LYMPHOCYTES 15.9 % (15-50); MCH 29.6 pg (26.0-34.0); MCHC 33.8 g/dL (31.0-37.0); MCV 87.3 fL (80.0-100.0); MEAN PLATELET VOLUME 10.6 fL (7.4-10.4); MONOCYTES 11.6 % (2-11); NEUTROPHILS 69.7 % (40-80); PLATELET COUNT 178 10x3/uL (130-400); RBC 3.79 10x6/uL (4.20-6.10); RDW 15.5 % (11.5-14.5); WBC 9.1 10x3/uL (4.8-10.8)
[2018-10-15 06:11] VITALS: BP 137/62
[2018-10-15 06:20] LABS: CALC OSMOLALITY 287 mosm/kg (275-300); CALCIUM 7.8 mg/dL (8.5-10.1); CARBON DIOXIDE 23.4 mmol/L (21.0-32.0); CHLORIDE - SERUM 111 mmol/L (98-107); CREATININE - SERUM 0.9 mg/dL (0.6-1.3); GLUCOSE 144 mg/dL (74-106); POTASSIUM - SERUM 3.3 mmol/L (3.5-5.1); SODIUM 144 mmol/L (136-145); UREA NITROGEN 6 mg/dL (7-18); eGFR NON AFRICAN AMERICAN 87 mL/min (90-120)
[2018-10-15 09:39] VITALS: BP 167/78
[2018-10-15 11:45] VITALS: BP 146/84
[2018-10-15 19:00] VITALS: BP 127/78
[2018-10-16 01:14] VITALS: BP 122/82
[2018-10-16 04:15] LABS: OVA + PARASITE EXAM Final report (())
[2018-10-16 05:25] VITALS: BP 138/81
[2018-10-16 06:00] LABS: BASOPHILS 0.3 % (0-2); EOSINOPHILS 2.8 % (0-7); HEMOGLOBIN 11.3 g/dL (13.5-17.5); IMMATURE GRANULOCYTES 0.5 % (0-5); MCH 29.6 pg (26.0-34.0); MCHC 34.2 g/dL (31.0-37.0); MCV 86.4 fL (80.0-100.0); MEAN PLATELET VOLUME 11.4 fL (7.4-10.4); MONOCYTES 12.2 % (2-11); NEUTROPHILS 69.2 % (40-80); PLATELET COUNT 175 10x3/uL (130-400); RBC 3.82 10x6/uL (4.20-6.10); RDW 15.5 % (11.5-14.5); WBC 9.2 10x3/uL (4.8-10.8)
[2018-10-16 06:08] LABS: CALC OSMOLALITY 282 mosm/kg (275-300); CALCIUM 7.9 mg/dL (8.5-10.1); CARBON DIOXIDE 23.2 mmol/L (21.0-32.0); CHLORIDE - SERUM 109 mmol/L (98-107); CREATININE - SERUM 0.9 mg/dL (0.6-1.3); GLUCOSE 132 mg/dL (74-106); MAGNESIUM - SERUM 1.6 mg/dL (1.8-2.4); SODIUM 142 mmol/L (136-145); UREA NITROGEN 7 mg/dL (7-18); eGFR NON AFRICAN AMERICAN 87 mL/min (90-120)
[2018-10-16 09:27] VITALS: BP 143/82
[2018-10-16] MEDS ORDERED: FLORAJEN3 CAPS460 MG PO (10:52)
[2018-10-16] MEDS ORDERED: CARAFATE1 G PO (10:52)
[2018-10-16] MEDS ORDERED: PROTONIX40 MG PO (10:52)
[2018-10-16] MEDS ORDERED: LEVAQUIN750 MG PO (10:53)
[2018-10-16] MEDS ORDERED: FLAGYL500 MG PO (10:54)
[2018-10-16 11:33] VITALS: BP 140/86
== END 2018-10-16 13:48 | disposition home or self-care (01) | DRG 871 ==
LOC: D.ER 23:10 → D.ICU 10-10 02:34 → D.M2 10-10 02:34 → D.ICU 10-11 12:57 → D.M2 10-13 19:00
PROVIDERS: Family Medicine; Internal Medicine Gastroenterology; Internal Medicine Nephrology
PROC: 0DJ08ZZ Inspection of Upper Intestinal Tract, Via Natural or Artificial Opening Endoscopic (ICD-10-PCS; principal; 2018-10-11 13:30)
DX: A41.9 Sepsis, unspecified organism (principal); K22.11 Ulcer of esophagus with bleeding; N17.9 Acute kidney failure, unspecified; D62 Acute posthemorrhagic anemia; K52.9 Noninfective gastroenteritis and colitis, unspecified; I10 Essential (primary) hypertension; F17.200 Nicotine dependence, unspecified, uncomplicated; G47.33 Obstructive sleep apnea (adult) (pediatric); E86.0 Dehydration; E78.5 Hyperlipidemia, unspecified; Z91.19 Patient's noncompliance with other medical treatment and regimen; K56.41 Fecal impaction; K44.9 Diaphragmatic hernia without obstruction or gangrene; Z95.0 Presence of cardiac pacemaker; R00.1 Bradycardia, unspecified; I25.10 Atherosclerotic heart disease of native coronary artery without angina pectoris; Z98.61 Coronary angioplasty status; K22.0 Achalasia of cardia

== ENCOUNTER 2018-11-13 06:48 | Emergency (ER) | payer MEDICARE ==
[~2018-11-13] VITALS: Ht 158.8 cm; Wt 51.4 kg
[~2018-11-13 06:48] MED LIST changes: +DESERYL50 M2 PO; +FLAGYL500 MG PO; +FLORAJEN3 CAPS460 MG PO; +K-TAB10 MEQ PO; +LEVAQUIN750 MG PO; +LISINOPRIL5 MG PO; +OMEPRAZOLE20 M1 PO
[2018-11-13 07:19] VITALS: Ht 158.8 cm; Wt 51.4 kg
[2018-11-13] MEDS ORDERED: CELEBREX 100 M100 MG PO (08:35)
[2018-11-13 08:57] VITALS: BP 158/072
== END 2018-11-13 08:59 | disposition home or self-care (01) ==
LOC: D.ER 06:48
DX: M25.562 Pain in left knee (principal); I10 Essential (primary) hypertension; I25.10 Atherosclerotic heart disease of native coronary artery without angina pectoris; F17.200 Nicotine dependence, unspecified, uncomplicated

== ENCOUNTER 2018-11-21 11:46 | Outpatient (CLI) | payer MEDICARE ==
[~2018-11-21] VITALS: Ht 158.8 cm; Wt 51.4 kg
--- NOTE | ~2018-11-21 | HEMODYNAMI ---
PATIENT:VALORIE SHEPHERD MEDICAL RECORD: [id number] : 41 LOCATION:[facility] ADMISSION DATE: 11/21/18 Generatedon:11/21/201815:01 Patient name: VALORIE SHEPHERD Patient #: [id number] SSN: : 1945 Date of study: 11/21/2018 Page: Of Hemodynamic Procedure Report Patient Data Patient Demographics Procedure consent was obtained First Name: VALORIE Gender: Male Last Name: JOAO : 1945 Patient #: [id number] Age: 73 year(s) Race: Black Additional ID: [id number] Contact details Address: [address] [place] [address] 2 State: [place] City: [facility] Zip code: [address] Admission Admission Data Admission Date: 11/21/2018 Admission Time: 11:46 Procedure Procedure Types Cath Procedure Diagnostic Procedure PPM/ICD Permanent Pacer Generator Exg. Procedure Description Procedure Date Procedure Date: 11/21/2018 Procedure Start Time: 14:44 Procedure End Time: 15:00 Procedure Staff Name Function Jose Doe MD Performing Physician Rogelio Emanuel MD Assisting physician Sheila Cid RT Monitor Sumit Massey RN Nurse Rachel Hernandez RT Scrub Procedure Data Cath Procedure Fluoroscopy Diagnostic fluoroscopy Total fluoroscopy Time: 0 time: 0 min min Diagnostic fluoroscopy Total fluoroscopy dose: 0 dose: 0 mGy mGy Contrast Material Contrast Material Type Amount (ml) Isovue 300 0 Estimated blood loss: 5 ml Procedure Complications No complications Procedure Medications Medication Administration Route Dosage Oxygen etCO2 Nasal cannula 2 l/min Lidocaine 1% added to field 20 Ancef (1Gm/50ml NS) I.V.P.B 1 g Ancef Irrigation Topical 1 g (1gm/500ml NS) Versed I.V. 1 mg Fentanyl I.V. 50 mcg Versed I.V. 0.5 mg Fentanyl I.V. 25 mcg Hemodynamics Rest Heart Rate: 84 (bpm) Snapshots Pre Cath Intra NCS Post Cath Vital Signs Time Heart Resp SPO2 etCO2 NIBP (mmHg) Rhythm Pain Sedation Rate (ipm) (%) (mmHg) Status Level (bpm) 14:25:01 80 11 100 39.5 215/92(173) NSR 0 (11) 10(A) , No pain 14:29:23 68 15 100 32.8 188/111(146) NSR 0 (11) 10(A) , No pain 14:33:53 66 16 100 32.8 169/106(153) NSR 0 (11) 10(A) , No pain 14:40:44 79 12 99 29.8 184/128(178) NSR 0 (11) 9(A) , No pain 14:45:08 75 14 99 26.1 172/99(145) NSR 0 (11) 9(A) , No pain 14:50:32 65 13 99 38.1 180/103(149) NSR 0 (11) 9(A) , No pain 14:55:58 63 14 97 30.6 182/111(148) NSR 0 (11) 10(A) , No pain 15:00:20 73 20 98 37.3 181/102(151) NSR 0 (11) 10(A) , No pain Medications Time Medication Route Dose Verified Delivered Reason Notes Effectiv eness by by 14:31:00 Oxygen etCO2 2 Jose Buffie used for Nasal l/min Nader Massey RN procedure cannula 14:31:10 Lidocaine added 20ml Jose Mercado for local 1% to vial Nader Emanuel MD anesthetic field x2 14:31:30 Ancef I.V.P.B 1 g Jose Buffie used for (1Gm/50ml Nader Massey RN procedure NS) 14:31:36 Ancef Topical 1 g Jose Buffie used for Irrigation Nader Massey RN procedure (1gm/500ml NS) 14:43:55 Versed I.V. 1 mg Jose Buffie for Nader Massey RN sedation 14:44:01 Fentanyl I.V. 50 Jose Lawrenceie for mcg Nader Massey RN sedation 14:53:21 Versed I.V. 0.5 Jose Buffie for mg Nader Massey RN sedation 14:53:26 Fentanyl I.V. 25 Jose Lawrenceie for mcg Nader Massey RN sedation Procedure Log Time Note 14:10:13 Time tracking: Regular hours (M-F 7:00 - 5:00) 14:10:16 Plan of Care:Hemodynamics will remain stable., Cardiac rhythm will remain stable., Comfort level will be maintained., Respiratory function will remain adequate., Patient/ family verbilizes understanding of procedure., Procedure tolerated without complication., Recovers from procedure without complications.. 14:12:15 Rachel Counts RT(R) sent for patient. Start room use. 14:19:02 Patient received from Pre/Post Procedure Room to CCL 3 Alert and oriented. Tansferred to table in Supine position. 14:19:03 Warm blankets applied, and anshul hugger turned on for patient comfort. 14:19:04 Correct patient and procedure confirmed by team. 14:19:05 Signed procedure consent form obtained from patient. 14:19:06 ECG and BP/O2 sat monitors applied to patient. 14:22:29 Vital chart was started 14:22:30 Full Disclosure recording started 14:24:00 Baseline sample Acquired. 14:24:03 Rhythm: paced 14:24:09 H&P Date Dictated: 11/21/2018 Within 30 days and on chart., H&P Addendum completed by physician on day of procedure. (MUST COMPLETE FOR ALL OUTPATIENTS). 14:24:11 Pre-procedure instructions explained to patient. 14:24:11 Pre-op teaching completed and patient verbalized understanding. 14:24:13 Family in waiting room. 14:24:14 Patient NPO since Midnight. 14:24:16 Is the patient allergic to Iodine/contrast media? No. 14:24:17 Was the patient premedicated? No 14:24:18 Is patient on blood thinner?No 14:24:19 Patient diabetic? No. 14:24:22 Previous problem with sedation/anesthesia? No ? 14:24:24 Snore? No 14:24:25 Sleep apnea? No 14:24:26 Deviated septum? No 14:24:27 Opens mouth fully? Yes 14:24:27 Sticks out tongue? Yes 14:24:29 Airway obstruction? No ? 14:24:31 Dentures? No ? 14:24:34 Pre procedure: right dorsailis pedis pulse 1+ Palpable, but thready & weak; easily obliterated 14:24:37 Pre procedure: left dorsailis pedis pulse 1+ Palpable, but thready & weak; easily obliterated 14:24:39 Patient pain scale 0/10 ?. 14:25:45 IV patent on arrival in left antecubital with 0.9% NaCl at [facility]. 14:25:47 Lab results completed and on chart. 14:25:52 Left chest area was prepped with chlora-prep and draped in sterile fashion 14:25:53 Alarms reviewed by R. N. 14::54 Sharps counted by scrub and verified by R.N. 14:31:00 Oxygen 2 l/min etCO2 Nasal cannula was administered by Sumit Massey RN; used for procedure; 14:31:10 Lidocaine 1% 20ml vial x2 added to field was administered by Rogelio Emanuel MD; for local anesthetic; 14:31:30 Ancef (1Gm/50ml NS) 1 g I.V.P.B was administered by Sumit Massey RN; used for procedure; 14:31:36 Ancef Irrigation (1gm/500ml NS) 1 g Topical was administered by Sumit Massey RN; used for procedure; 14:34:10 Use device set PREMA PPM 14:34:17 Medtronic Adapta PPM Dual Generator [id number] opened to sterile field. 14:35:00 Cautery Pushbutton Pencil opened to sterile field. 14:35:01 Mepilex Dressing ([id number]) opened to sterile field. 14:35:02 Cautery Tip Combination Building Inspector opened to sterile field. 14:35:03 5-0 Monocryl PS2 [id number] opened to sterile field. 14:35:03 3-0 Vicryl Single Pack [id number] opened to sterile field. 14:35:05 2-0 Ticron Multipack ([id number]) opened to sterile field. 14:43:34 Physician arrived 14:43:35 --------ALL STOP TIME OUT------ 14:43:35 Final Timeout: patient, procedure, and site verified with staff and physician. All members of the team are in agreement. 14:43:38 Left chest site verified by team. 14:43:40 Physical assessment completed. ASA score P 2 - A patient with mild systemic disease as per Rogelio Emanuel MD. 14:43:44 Sedation plan: IV Moderate Sedation Medication:Versed, Fentanyl 14:43:55 Versed 1 mg I.V. was administered by Sumit Massey RN; for sedation; 14::57 Procedure started. 14:44:01 Fentanyl 50 mcg I.V. was administered by Sumit Massey RN; for sedation; 14:44:24 Medtronic event sales representative AGUSTIN BAKER present for procedure. 14:44:38 Pre sharps counted by scrub and verified by RN: Sutures: 7; Sponges: 5; Stick needles: 2; Skin needles: 2; Blade: 1; Cautery: 1 14:44:41 Grounding pad site Left thigh. 14:44:43 Grounding pad site free from injury. 14:44:48 Lidocaine 1% w/epi was administered to left subclavicular area by Rogelio Emanuel MD . 14:44:51 Incision made to left subclavicular area. 14:48:08 Generator pocket made/opened. 14:50:44 PPM Dual was removed.. 14:50:50 PPM Dual was attached to lead(s) and inserted into pocket. 14:51:02 Ventricular lead attachment was completed with 2-0 ticron. 14:51:08 Atrial lead attachment was completed with 2-0 ticron. 14:51:20 Device pocket was irrigated with Ancef. 14:53:21 Versed 0.5 mg I.V. was administered by Sumit Massey RN; for sedation; 14:53:24 Subcutaneous closure was completed with 3-0 vicryl plus. 14:53:26 Fentanyl 25 mcg I.V. was administered by Sumit Massey RN; for sedation; 14:56:23 Skin closure was completed with 5-0 monocryl. 14:56:34 Lt Chest incision was dressed with Mepilex dressing. 14:57:42 Procedure ended.(Physican Out) 14:58:39 Fluoroscopy time 00.00 minutes. 14:58:43 Fluoroscopy dose: 0 mGy 14:58:43 Flurop Dose total: 0 14:58:46 Contrast amount:Isovue 300 0ml. 14:58:48 Sharps counted by scrub and verified by R.N. 14:58:49 Insertion/operative site no bleeding no hematoma. 14:59:19 Post Procedure Pulses reassessed and unchanged 14:59:23 Post procedure rhythm: unchanged. 14:59:26 Estimated blood loss: 5 ml 14:59:28 Post procedure instruction explained to patient.Patient verbalizes understanding. 14:59:29 Patient needs reinforcement of post procedure teaching. 14:59:37 Procedure and supply charges have been captured, reviewed, submitted and are correct. 14:59:41 Procedure Complication : No complications 14:59:46 Vital chart was stopped 14:59:48 See physician's report for complete and final results. 15:00:11 Report given to Pre/Post Procedure Room. 15:00:14 Patient transfered to Pre/Post Procedure Room with Stretcher. 15:00:15 Procedure ended. 15:00:15 Full Disclosure recording stopped 15:00:19 End room use (Document Last) Device Usage Item Name Manufacture Quantity Catalog Hospital Part Current Minimal Lot# / Number Charge Number Stock Stock Serial# Code Medtronic Medtronic 1 [id number] 5 [id number] Adapta PPM EXP Dual 10-02-2019 Generator [id number] Cautery Microtek 1 [id number] 15620 [id number] 5 Pushbutton [employer] Inc[employer] Pencil Mepilex Cardinal 1 399140 107569 386938 [id number] 5 Dressing Health (965810) Cautery Tip Microtek 1 [id number] 140561 562764 [id number] 5 Combination Building Inspector [employer] 5-0 Monocryl Ethicon 1 [id number] 120632 718117 548106 5 PS2 Y495G 3-0 Vicryl Ethicon 1 [id number] 525123 395485 954698 5 Single Pack [id number] 2-0 Ticron Ethicon 8 [id number] 39342 431770 5 Multipack ([id number]) Signature Audit [place] Time Signature Unsigned Intra-Procedure 11/21/2018 Sheila Cid 3:01:14 PM RT(R) Signatures Monitor : Sheila Cid RT Signature : Date : Time : [id number] [place] [address]
[~2018-11-21 11:46] MED LIST changes: +CELEBREX 100 M100 MG PO
[2018-11-21 12:32] VITALS: BP 100/54; BMI 20.3
[2018-11-21 12:35] VITALS: BP 110/54; Ht 158.8 cm; Wt 51.4 kg
[2018-11-21 12:46] LABS: HEMOGLOBIN 13.5 g/dL (13.5-17.5); MCHC 32.9 g/dL (31.0-37.0); MCV 88.2 fL (80.0-100.0); RBC 4.65 10x6/uL (4.20-6.10); RDW 15.2 % (11.5-14.5); WBC 7.2 10x3/uL (4.8-10.8)
[2018-11-21 13:01] LABS: INR 0.93 (0.85-1.17)
[2018-11-21 13:41] LABS: CALC OSMOLALITY 285 mosm/kg (275-300); CALCIUM 8.8 mg/dL (8.5-10.1); CARBON DIOXIDE 28.2 mmol/L (21.0-32.0); CHLORIDE - SERUM 106 mmol/L (98-107); CREATININE - SERUM 0.8 mg/dL (0.6-1.3); GLUCOSE 97 mg/dL (74-106); POTASSIUM - SERUM 3.6 mmol/L (3.5-5.1); SODIUM 143 mmol/L (136-145); UREA NITROGEN 15 mg/dL (7-18); eGFR NON AFRICAN AMERICAN > 90 mL/min (90-120)
[2018-11-21] MEDS ORDERED: NORCO 10-325 TA1 TAB PO (14:58)
--- NOTE | 2018-11-21 15:30 | NUR ---
PT RESTING COMFORTABLY. PT'S FAMILY CAME, UPDATED THEM ON PT'S STATUS AND PLAN FOR DISCHARGE. THEY WILL COME BACK ONCE PT IS DISCHARGED.
--- NOTE | 2018-11-21 16:15 | NUR ---
BP 201-103. GETTING ORDERS FOR CLONIDINE PO. WILL GIVE MEDICATION ORDERED. NOTIFIED SON THAT HE WILL BE DISCHARGED CLOSER TO 5PM LONG HIS BLOOD PRESSURE HAS COME DOWN. HE VOICED UNDERSTANDING.
--- NOTE | 2018-11-21 16:15 | NUR ---
BP 201/103. GETTING ORDERS FOR CLONIDINE PO. WILL GIVE MEDICATION ORDERED. NOTIFIED SON THAT HE WILL BE DISCHARGED CLOSER TO 5 LONG HIS BLOOD PRESSURE HAS COME DOWN. HE VOICED UNDERSTANDING.
--- NOTE | 2018-11-21 17:01 | NUR ---
BP 199/96. WILL GIVE PT A PAIN PILL. RATES HIS LEFT KNEE PAIN A 6/10 AT THIS TIME.
--- NOTE | 2018-11-21 17:20 | NUR ---
BP TRENDING DOWN. NOW 189/95
--- NOTE | 2018-11-21 17:33 | NUR ---
BP NOW 175/86. LEFT AC PIV D/C'D WITH CATH TIP INTACT. PT TOLERATED WELL. PT ABLE TO GET UP AND DRESSED. NOTIFIED PT'S SON THAT HE WILL BE READY FOR DISCHARGE HOME.
--- NOTE | 2018-11-21 17:50 | NUR ---
DISCUSSED DISCHARGE INSTRUCTIONS WITH PT. HE VOICED UNDERSTANDING. WAITING ON RIDE FROM HIS SON.
--- NOTE | 2018-11-21 18:10 | NUR ---
PT TAKEN OUT BY WHEELCHAIR. NO S/S OF DISTRESS NOTED. ALL BELONGINGS IN HAND.
--- NOTE | 2018-11-22 13:31 | OP ---
PATIENT NAME: VALORIE SHEPHERD MEDICAL RECORD: [id number] :41 LOCATION:D.CAT ADMISSION DATE: SURGEON: ROGELIO LLOYD MD DATE OF OPERATION: 11/21/2018 PREOPERATIVE DIAGNOSES: 1. End-of-life generator. 2. Atrial fibrillation. 3. Coronary artery disease. 4. Hypertension. POSTOPERATIVE DIAGNOSES: 1. End-of-life generator. 2. Atrial fibrillation. 3. Coronary artery disease. 4. Hypertension. PROCEDURE: Left subclavian vein dual lead pacemaker generator exchange. SURGEON: Rogelio Lloyd MD REPORT OF PROCEDURE: The patient's left chest was prepped and draped in sterile fashion. A 10 mL of 1% lidocaine with epinephrine was infused into the surrounding tissues. A skin incision was made overlying the pacemaker and the pacemaker was eviscerated through the wound. This was disconnected from the indwelling leads and a new pacemaker was affixed to the leads. This was placed into the subcutaneous pouch. The subcutaneous tissues were irrigated out and then reapproximated with interrupted 3-0 Vicryl. The skin was closed with running subcutaneous 5-0 Monocryl. COMPLICATIONS: None. CONDITION: Stable. ANESTHESIA: Local MAC. BLOOD LOSS: Minimal. TRANSINT:[id number] Voice Confirmation ID: [id number] DOCUMENT ID: [id number] ROGELIO LLOYD MD at 1331 CC: BENJAMÍN HASSAN [id number] DICTATION DATE: 11/21/18 1500 SONG PLUGGER: 11/21/18 1920 DEP CLI 11/21/18 [facility] [address] [id number]
== END 2018-11-21 18:10 | disposition home or self-care (01) ==
LOC: D.CATH 11:46
PROVIDERS: Internal Medicine Interventional Cardiology
DX: Z45.010 Encounter for checking and testing of cardiac pacemaker pulse generator [battery] (principal); I48.91 Unspecified atrial fibrillation; I25.110 Atherosclerotic heart disease of native coronary artery with unstable angina pectoris; I10 Essential (primary) hypertension

== ENCOUNTER → 2019-01-03 09:49 | Outpatient (CLI) | payer MEDICARE ==
[2018-11-21 12:35] VITALS: BMI 20.3
[~2019-01-03 09:49] MED LIST changes: +NORCO 10-325 TA1 TAB PO
== END | disposition home or self-care (01) ==
LOC: D.MRI 09:49
DX: M25.562 Pain in left knee (principal)

== ENCOUNTER 2019-12-14 09:51 | Inpatient (IN) | payer MEDICARE ==
[~2019-12-14] VITALS: Ht 158.8 cm; Wt 52.6 kg
--- NOTE | 2019-12-14 10:53 | NUR ---
LAB AT BEDSIDE DRAWING FIRST SET OF BLOOD CULTURES. SECOND SET DRAWN WITH IV START.
[2019-12-14 11:04] LABS: BASOPHILS 0.2 % (0-2); HEMATOCRIT 38.6 % (42.0-54.0); HEMOGLOBIN 13.1 g/dL (13.5-17.5); IMMATURE GRANULOCYTES 0.2 % (0-5); LYMPHOCYTES 16.2 % (15-50); MCH 30.5 pg (26.0-34.0); MCHC 33.9 g/dL (31.0-37.0); MCV 89.8 fL (80.0-100.0); MONOCYTES 8.4 % (2-11); RDW 13.8 % (11.5-14.5); WBC 12.2 10x3/uL (4.8-10.8)
[2019-12-14 11:16] LABS: PLATELET COUNT 289 10x3/uL (130-400)
[2019-12-14 11:36] LABS: ALBUMIN 2.8 g/dL (3.4-5.0); ANION GAP 9.6 mmol/L (8-16); BILIRUBIN - TOTAL 0.69 mg/dL (0.2-1.3); CALCIUM 8.9 mg/dL (8.5-10.1); CARBON DIOXIDE 33.2 mmol/L (21.0-32.0); CREATININE - SERUM 1.3 mg/dL (0.6-1.3); PROTEIN - SERUM 8.6 g/dL (6.4-8.2)
[2019-12-14 11:37] LABS: POTASSIUM - SERUM 2.8 mmol/L (3.5-5.1)
--- NOTE | 2019-12-14 11:39 | NUR ---
CRITICAL POTASSIUM = 2.8 CALLED BY AMINA CERTIFIED REGISTERED NURSE PRACTITIONER. BIRD, LIZZEHT, INFORMED.
[2019-12-14] MEDS ORDERED: METOPROLOL TART50 MG PO (13:06)
[2019-12-14 14:09] VITALS: BP 113/71; BMI 20.9
[2019-12-14 22:04] VITALS: BP 112/57
--- NOTE | 2019-12-14 22:04 | NUR ---
GAVE PT SCHEDULED MEDS. PT DENIES PAIN. RIGHT HAND SWOLLEN WITH MINIMAL SEROSANG FLUID DRAINING FROM CRACKED BETWEEN INDEX AND MIDDLE FINGERS. PT REFUSED DRESSING. STATED HE WOULD RATHER KEEP A CLEAN CLOTH DRAPED AROUND IT. REFUSED SCD'S. NO OTHER NEEDS. REMINDED PT TO HAVE NOTHING BY MOUTH AFTER MIDNIGHT. BED LOW. CALL LIGHT IN REACH.
[2019-12-15] VITALS (8 sets, daily range): BP systolic 120–169; BP diastolic 57–78; Ht 158.8 cm; Wt 52.6 kg
[2019-12-15 04:57] LABS: BASOPHILS 0.3 % (0-2); EOSINOPHILS 6.4 % (0-7); HEMOGLOBIN 11.7 g/dL (13.5-17.5); IMMATURE GRANULOCYTES 0.3 % (0-5); MCH 30.1 pg (26.0-34.0); MCHC 33.4 g/dL (31.0-37.0); MEAN PLATELET VOLUME 10.6 fL (7.4-10.4); MONOCYTES 8.9 % (2-11); NEUTROPHILS 63.1 % (40-80); PLATELET COUNT 255 10x3/uL (130-400); RBC 3.89 10x6/uL (4.20-6.10); RDW 13.7 % (11.5-14.5)
[2019-12-15 05:09] LABS: WBC 6.8 10x3/uL (4.8-10.8)
[2019-12-15 05:13] LABS: ALBUMIN 2.1 g/dL (3.4-5.0); ANION GAP 11.7 mmol/L (8-16); BILIRUBIN - TOTAL 0.46 mg/dL (0.2-1.3); CALCIUM 7.8 mg/dL (8.5-10.1); CARBON DIOXIDE 30.2 mmol/L (21.0-32.0); CREATININE - SERUM 1.1 mg/dL (0.6-1.3); POTASSIUM - SERUM 3.9 mmol/L (3.5-5.1); PROTEIN - SERUM 6.9 g/dL (6.4-8.2)
--- NOTE | 2019-12-15 09:24 | NUR ---
Pt scheduled for I&D today 12/15/2019 (Dr. Gray).
--- NOTE | 2019-12-15 09:50 | NUR ---
PT RESTING QUIETLY IN BED. NO ACUTE DISTRESS NOTED. PT DENIES PAIN AT THIS TIME. IV TO RIGHT FOREARM WITH NS W/40KCL @150ML/HR INFUSING VIA PUMP. SITE WITHOUT REDNESS OR EDEMA. RIGHT HAND WITH 2+ PITTING EDEMA WITH OPEN AREA NOTED BETWEEN FIRST FINGER AND MIDDLE FINGER DRAINING SEROSANGEOUNOUS DRAINAGE. DENIES FURTHER NEEDS AT THIS TIME. CL WITHIN REACH. ENCOURAGED TO CALL WITH NEEDS. CONTINUE POC
--- NOTE | 2019-12-15 10:30 | NUR ---
IV RESITED TO LEFT FOREARM. 20G X 1 STICK, GOOD BLOOD RETURN, EASILY FLUSHED. TAPED INTO PLACE. PT JESSICA WELL. IV TO RIGHT FOREARM SWOLLEN AND REDENNED. IV DISCONTINUED AT THIS TIME WITH CATH INTACT.
[2019-12-16 00:30] VITALS: BP 125/57
--- NOTE | 2019-12-16 01:08 | NUR ---
1915) rec'd.walking rounds chge of shift. arouses easily to verbal stimuli.bulky acewrap drsg. to right hand.top portion of fingers visible. with 1+ edema present unable to wiggle fingers refuses for nurese to check for capillary return. states hurts to bad when you touch it.continues to refuse scd's. will continue to monitor for any chges in current neurovascular status and follow current plan of care
[2019-12-16 04:15] VITALS: BP 136/74
[2019-12-16 06:04] LABS: ALBUMIN 2.2 g/dL (3.4-5.0); ALKALINE PHOSPHATASE 94 U/L (30-120); ALT (SGPT) 12 U/L (10-68); BILIRUBIN - TOTAL 0.37 mg/dL (0.2-1.3); CALCIUM 7.9 mg/dL (8.5-10.1); CARBON DIOXIDE 23.9 mmol/L (21.0-32.0); CHLORIDE - SERUM 109 mmol/L (98-107); GLUCOSE 83 mg/dL (74-106); PROTEIN - SERUM 6.9 g/dL (6.4-8.2); SODIUM 141 mmol/L (136-145); eGFR NON AFRICAN AMERICAN 77 mL/min (90-120)
[2019-12-16 06:05] LABS: CALC OSMOLALITY 277 mosm/kg (275-300); POTASSIUM - SERUM 4.6 mmol/L (3.5-5.1); UREA NITROGEN 6 mg/dL (7-18)
[2019-12-16 06:14] LABS: BASOPHILS 0.3 % (0-2); EOSINOPHILS 4.6 % (0-7); HEMATOCRIT 36.3 % (42.0-54.0); HEMOGLOBIN 12.1 g/dL (13.5-17.5); IMMATURE GRANULOCYTES 0.1 % (0-5); LYMPHOCYTES 22.3 % (15-50); MCH 29.9 pg (26.0-34.0); MCHC 33.3 g/dL (31.0-37.0); MCV 89.6 fL (80.0-100.0); MEAN PLATELET VOLUME 10.4 fL (7.4-10.4); MONOCYTES 11.9 % (2-11); NEUTROPHILS 60.8 % (40-80); PLATELET COUNT 249 10x3/uL (130-400); RBC 4.05 10x6/uL (4.20-6.10); RDW 13.8 % (11.5-14.5); WBC 7.6 10x3/uL (4.8-10.8)
--- NOTE | 2019-12-16 07:24 | NUR ---
I have reviewed this patient and I concur with the Shift Assessment completed by the Licensed Practical Nurse today this shift.
[2019-12-16 07:53] VITALS: BP 152/60
--- NOTE | 2019-12-16 08:10 | NUR ---
RESTING IN BED, NO DISTRESS NOTED, IN ISOLATION FOR MRSA OF WOUND, CONT TO MONITOR LABS AND PAIN
[2019-12-16 11:31] VITALS: BP 147/67
[2019-12-16 16:44] VITALS: BP 144/75
--- NOTE | 2019-12-16 17:20 | NUR ---
UP FOR SHOWER, CONT TO MONITOR, DENIES PAIN, DRESSING DRY TO HAND
[2019-12-16 19:30] VITALS: BP 136/74
[2019-12-17 00:30] VITALS: BP 145/83
[2019-12-17 04:50] VITALS: BP 128/70
[2019-12-17 05:14] LABS: HEMATOCRIT 34.5 % (42.0-54.0); HEMOGLOBIN 11.5 g/dL (13.5-17.5); RBC 3.89 10x6/uL (4.20-6.10)
[2019-12-17 05:15] LABS: BASOPHILS 0.6 % (0-2); EOSINOPHILS 6.9 % (0-7); IMMATURE GRANULOCYTES 0.6 % (0-5); LYMPHOCYTES 22.6 % (15-50); MCH 29.6 pg (26.0-34.0); MCHC 33.3 g/dL (31.0-37.0); MCV 88.7 fL (80.0-100.0); MEAN PLATELET VOLUME 10.5 fL (7.4-10.4); MONOCYTES 15.7 % (2-11); NEUTROPHILS 53.6 % (40-80); PLATELET COUNT 265 10x3/uL (130-400); RDW 13.8 % (11.5-14.5)
[2019-12-17 05:25] LABS: WBC 5.2 10x3/uL (4.8-10.8)
[2019-12-17 05:42] LABS: ALBUMIN 2.2 g/dL (3.4-5.0); ANION GAP 13.2 mmol/L (8-16); BILIRUBIN - TOTAL 0.32 mg/dL (0.2-1.3); CALCIUM 7.9 mg/dL (8.5-10.1); CARBON DIOXIDE 21.7 mmol/L (21.0-32.0); CREATININE - SERUM 1.1 mg/dL (0.6-1.3); POTASSIUM - SERUM 4.9 mmol/L (3.5-5.1); PROTEIN - SERUM 6.7 g/dL (6.4-8.2)
--- NOTE | 2019-12-17 06:55 | NUR ---
I have reviewed this patient and I concur with the Shift Assessment completed by the Licensed Practical Nurse today this shift.
[2019-12-17 08:20] VITALS: BP 166/56
--- NOTE | 2019-12-17 08:31 | MORECARE ---
CASE MANAGEMENT DISCHARGE SUMMARY PATIENT: VALORIE SHEPHERD UNIT: [id number] ADM DATE: 12/14/19 AGE: 74 : 43 SEX: M ROOM/BED: D.2201 AUTHOR: KELSYDOC PHYSICIAN: REFERRING PHYSICIAN: VAN HOLLIDAY MD DATE OF SERVICE: 12/17/19 Discharge Plan Patient Name: VALORIE SHEPHERD Facility: [facility]:[place] : 1945 Planned Disposition: Home with Home Health Anticipated Discharge Date: Discharge Date: Expected LOS: Initial Reviewer: [email or web address] Initial Review Date: 12/14/2019 Generated: 12/17/19 9:30 am Comments DCP- Discharge Planning Updated by [email or web address]: Michela Alfaro on 12/17/19 7:[address] Patient Name: VALORIE SHEPHERD Admission Status: ER Accout number: [id number] Admission Date: 12-14-2019 : 1945 Admission Diagnosis: Attending: VAN HOLLIDAY Current LOS: 3 Anticipated DC Date: Planned Disposition: Home with Home Health Primary Insurance: MEDICARE A & B Discharge Planning Comments: CM met with patient to complete initial dc planning assessment. CM educated patient on the CM role and verbal consent given by patient to complete assessment. Patient lives at home by himself where he states he is independent with his care. At discharge patient plans to return home and feels this is a safe discharge. He plans to drive himself home, he states his car in out front. CM discussed availability of home health, rehab services, and medical equipment. He will need home health for dressing changes. MARGARETTE signed for [facility] . He stated that his son could come over and help him with the dressing changes and home health could teach him. IMM served and signed and placed on chart. I will contact [email or web address] on referral. Patient denied known discharge needs at this time. CM will continue to follow and will assist as needed with dc plans/needs. Guest Experience Representative: Michela Alfaro DCPIA - Discharge Planning Initial Assessment Updated by [email or web address]: Michela Alfaro on 12/17/19 8:24 am * Is the patient Alert and Oriented? Yes * How many steps to enter\exit or inside your home? * PCP MIKI * [facility]acy [facility] [address] * Preadmission Environment Home Alone * ADLs Independent * Equipment None * List name and contact numbers for known caregivers / representatives who currently or will assist patient after discharge: KELSI (SON) [phone] * Verbal permission to speak to the caregivers and representatives has been obtained from the patient. N/A * Community resources currently utilized None * Additional services required to return to the preadmission environment? Yes * Can the patient safely return to the preadmission environment? Yes * Has this patient been hospitalized within the prior 30 days at any hospital? No Coverage Notice Reviewer: [id number] Ruthann Alfaro Notice Issued Date-Time: 12/17/2019 7:40 Notice Type: IM Discharge Notice Notice Delivered To: Patient Relationship to Patient: Car Wash Manager Name: Delivery Method: HAND - Hand Delivered Halley Days: Prior Verbal Notification: Recipient Understood Notice: Yes Recipient Signature: Yes Med Rec Note Co-signed by Attending: Coverage Notice Comment: Reviewer: [email or web address] Ruthann Alfaro Notice Issued Date-Time: 12/17/2019 7:40 Notice Type: Patient Choice Letter Notice Delivered To: Patient Relationship to Patient: Car Wash Manager Name: Delivery Method: HAND - Hand Delivered Halley Days: Prior Verbal Notification: Recipient Understood Notice: Yes Recipient Signature: Yes Med Rec Note Co-signed by Attending: Coverage Notice Comment: [facility] Patient Name: VALORIE SHEPHERD Page [phone] at 0831 All edits/amendments must be made on the electronic document DICTATION DATE: 12/17/19829 WASTE REMOVALIST: DM 12/17/19829 RPT#: [id number] DC DATE: STATUS: ADM IN [facility] [address] [place] [address] END OF REPORT
--- NOTE | 2019-12-17 10:59 | NUR ---
PT ALERT X 4. [place]. BREATH SOUNDS CLEAR BILAT. TELEMETRY IN PLACE. IV TO LEFT FOREARM, PATENT, DRESSING CDI. DRESSING TO RIGHT HAND CDI. PT REPORTING NO PAIN AT THIS TIME. BED LOW, CALL LIGHT IN REACH. NO OTHER NEEDS AT THIS TIME.
--- NOTE | 2019-12-17 11:57 | MORECARE ---
CASE MANAGEMENT DISCHARGE SUMMARY PATIENT: VALORIE SHEPHERD UNIT: [id number] ADM DATE: 12/14/19 AGE: 74 : 43 SEX: M ROOM/BED: D.2201 AUTHOR: KELSYDOC PHYSICIAN: REFERRING PHYSICIAN: VAN HOLLIDAY MD DATE OF SERVICE: 12/17/19 Discharge Plan Patient Name: VALORIE SHEPHERD Facility: [facility]:[place] : 1945 Planned Disposition: Home with Home Health Anticipated Discharge Date: Discharge Date: Expected LOS: Initial Reviewer: [email or web address] Initial Review Date: 12/14/2019 Generated: 12/17/19 12:57 pm Comments DCP- Discharge Planning Updated by [email or web address]: Michela Alfaro on 12/17/19 7:[address] Patient Name: VALORIE SHEPHERD Admission Status: ER Accout number: [id number] Admission Date: 12-14-2019 : 1945 Admission Diagnosis: Attending: VAN HOLLIDAY Current LOS: 3 Anticipated DC Date: Planned Disposition: Home with Home Health Primary Insurance: MEDICARE A & B Discharge Planning Comments: CM met with patient to complete initial dc planning assessment. CM educated patient on the CM role and verbal consent given by patient to complete assessment. Patient lives at home by himself where he states he is independent with his care. At discharge patient plans to return home and feels this is a safe discharge. He plans to drive himself home, he states his car in out front. CM discussed availability of home health, rehab services, and medical equipment. He will need home health for dressing changes. CHENG signed for [facility] . He stated that his son could come over and help him with the dressing changes and home health could teach him. IMM served and signed and placed on chart. I will contact [facility] on referral. Patient denied known discharge needs at this time. CM will continue to follow and will assist as needed with dc plans/needs. Obedience Trainer: Michela Alfaro DCPIA - Discharge Planning Initial Assessment Updated by [email or web address]: Michela Alfaro on 12/17/19 8:24 am * Is the patient Alert and Oriented? Yes * How many steps to enter\exit or inside your home? * PCP MIKI * [facility]acy [facility] [address] * Preadmission Environment Home Alone * ADLs Independent * Equipment None * List name and contact numbers for known caregivers / representatives who currently or will assist patient after discharge: KELSI (SON) [phone] * Verbal permission to speak to the caregivers and representatives has been obtained from the patient. N/A * Community resources currently utilized None * Additional services required to return to the preadmission environment? Yes * Can the patient safely return to the preadmission environment? Yes * Has this patient been hospitalized within the prior 30 days at any hospital? No External Providers External Provider: [facility] Next Contact Date: Service Request Date: Service Type: Resolution: Reviewer: Comments: Coverage Notice Reviewer: [id number] Alfaro Notice Issued Date-Time: 12/17/2019 7:40 Notice Type: IM Discharge Notice Notice Delivered To: Patient Relationship to Patient: Chef Instructor Name: Delivery Method: HAND - Hand Delivered Halley Days: Prior Verbal Notification: Recipient Understood Notice: Yes Recipient Signature: Yes Med Rec Note Co-signed by Attending: Coverage Notice Comment: Reviewer: FRAN Alfaro Notice Issued Date-Time: 12/17/2019 7:40 Notice Type: Patient Choice Letter Notice Delivered To: Patient Relationship to Patient: Chef Instructor Name: Delivery Method: HAND - Hand Delivered Halley Days: Prior Verbal Notification: Recipient Understood Notice: Yes Recipient Signature: Yes Med Rec Note Co-signed by Attending: Coverage Notice Comment: cheng for alida Last DP export: 12/17/19 7:31 a Patient Name: VALORIE SHEPHERD Page [phone] at 1157 All edits/amendments must be made on the electronic document DICTATION DATE: 12/17/19 1157 EAR NOSE THROAT SURGEON: SELENE 12/17/19 1157 RPT#: [id number] DC DATE: STATUS: ADM IN [facility] [address] [place] [address] END OF REPORT
[2019-12-17] MEDS ORDERED: DOXYCYCLINE HY100 M2 PO (12:26)
--- NOTE | 2019-12-17 16:50 | NUR ---
DISCHARGE PAPERWORK SIGNED, ALL QUESTIONS ANSWERED. IV TO LEFT FOREARM DC'D, TIP INTACT. ESCORTED OUT BY WHEELCHAIR.
--- NOTE | 2019-12-18 11:49 | OP ---
PATIENT NAME: VALORIE SHEPHERD MEDICAL RECORD: [id number] :41 LOCATION:D.MS [facility] ADMISSION DATE:12/14/19 SURGEON: TICO BISHOP MD DATE OF OPERATION: 12/15/2019 PREOPERATIVE DIAGNOSES: Abscess and infection of the right second and third webspace that is between the right index finger metacarpal and the right long finger metacarpal, this did include skin, subcutaneous tissue, portions of fat and fascia. SURGEON: Tico Bishop MD ANESTHESIA: General. INTRAOPERATIVE COMPLICATIONS: None. SUMMARY OF PATHOLOGIC FINDINGS: Upon exploration of the patient's wound, it did appear to be primarily an abscess between the second and third MTP joints. The flexor of the long finger was explored and found not to have any purulence in it. OPERATIVE SUMMARY IN DETAIL: After obtaining the appropriate preoperative orthopedic surgery consent as well as anesthetic consultation, evaluation and clearance, the patient was brought to the operating room and placed on the operating table in a supine position. After general laryngeal mask airway was administered, the patient's right upper extremity was prepped and draped in routine sterile fashion. After appropriate timeout was taken and agreed upon by all, probing of the interspace joint did elicit purulent drainage. Serial and sequential rongeur, curettage and scalpel debridement was done until all nonviable appearing and appearing tissue was removed. Cultures were taken prior to this; however, after substantial irrigation and debridement, a small elongation was made over the A1 terry of the third finger. This was then evaluated at the level of the tendon and no purulence was noted. Further irrigation was then followed by packing the entire wound with quarter inch Nu Gauze. Sterile dressings were applied. The patient was awakened and taken to recovery room in stable condition. All final needle and sponge counts were correct. TRANSINT:[id number] Voice Confirmation ID: [id number] DOCUMENT ID: [id number] TICO BISHOP MD at 1149 CC: [id number] DICTATION DATE: 12/16/19 0928 BUSINESS PROCESS MODELER: 12/16/19 1256 DIS IN 12/17/[id number] [place] [address]
--- NOTE | 2019-12-20 15:35 | MORECARE ---
CASE MANAGEMENT DISCHARGE SUMMARY PATIENT: VALORIE SHEPHERD UNIT: [id number] ADM DATE: 12/14/19 AGE: 74 : 43 SEX: M ROOM/BED: D.2201 AUTHOR: KELSYDOC PHYSICIAN: REFERRING PHYSICIAN: VAN HOLLIDAY MD DATE OF SERVICE: 12/20/19 Discharge Plan Patient Name: VALORIE SHEPHERD Facility: [facility]:[place] : 1945 Planned Disposition: Home with Home Health Anticipated Discharge Date: Discharge Date: 12/17/2019 Expected LOS: Initial Reviewer: [email or web address] Initial Review Date: 12/14/2019 Generated: 12/20/19 4:35 pm Comments DCP- Discharge Planning Updated by [id number]: Michela Alfaro on 12/17/19 7:[address] Patient Name: VALORIE SHEPHERD Admission Status: ER Accout number: [id number] Admission Date: 12-14-2019 : 1945 Admission Diagnosis: Attending: VAN HOLLIDAY Current LOS: 3 Anticipated DC Date: Planned Disposition: Home with Home Health Primary Insurance: MEDICARE A & B Discharge Planning Comments: CM met with patient to complete initial dc planning assessment. CM educated patient on the CM role and verbal consent given by patient to complete assessment. Patient lives at home by himself where he states he is independent with his care. At discharge patient plans to return home and feels this is a safe discharge. He plans to drive himself home, he states his car in out front. CM discussed availability of home health, rehab services, and medical equipment. He will need home health for dressing changes. CHENG signed for [employer] . He stated that his son could come over and help him with the dressing changes and home health could teach him. [facility] served and signed and placed on chart. I will contact [facility] on referral. Patient denied known discharge needs at this time. CM will continue to follow and will assist as needed with dc plans/needs. [place]im[place] Mason: Michela Alfaro DCPIA - Discharge Planning Initial Assessment Updated by [email or web address]: Michela Alfaro on 12/17/19 8:24 am * Is the patient Alert and Oriented? Yes * How many steps to enter\exit or inside your home? * PCP MIKI * Pharmacy [facility] [address] * Preadmission Environment Home Alone * ADLs Independent * Equipment None * List name and contact numbers for known caregivers / representatives who currently or will assist patient after discharge: KELSI (SON) [phone] * Verbal permission to speak to the caregivers and representatives has been obtained from the patient. N/A * Community resources currently utilized None * Additional services required to return to the preadmission environment? Yes * Can the patient safely return to the preadmission environment? Yes * Has this patient been hospitalized within the prior 30 days at any hospital? No Coverage Notice Reviewer: [email or web address] Ruthann Alfaro Notice Issued Date-Time: 12/17/2019 7:40 Notice Type: IM Discharge Notice Notice Delivered To: Patient Relationship to Patient: Project Developer Name: Delivery Method: HAND - Hand Delivered Halley Days: Prior Verbal Notification: Recipient Understood Notice: Yes Recipient Signature: Yes Med Rec Note Co-signed by Attending: Coverage Notice Comment: Reviewer: [id number] Alfaro Notice Issued Date-Time: 12/17/2019 7:40 Notice Type: Patient Choice Letter Notice Delivered To: Patient Relationship to Patient: Project Developer Name: Delivery Method: HAND - Hand Delivered Halley Days: Prior Verbal Notification: Recipient Understood Notice: Yes Recipient Signature: Yes Med Rec Note Co-signed by Attending: Coverage Notice Comment: cheng for tiffanie Last DP export: 12/17/19 10:57 a Patient Name: VALORIE SHEPHERD Page [phone] at 1535 All edits/amendments must be made on the electronic document DICTATION DATE: 12/20/19 1535 ICING AND GLAZE MAKER: SELENE 12/20/19 1535 RPT#: [id number] DC DATE:12/17/19 STATUS: DIS IN [facility] [address] [place] [address] END OF REPORT
== END 2019-12-17 16:52 | disposition home health service (06) | DRG 982 ==
LOC: D.ER 09:51 → D.MS 12:21 → D.ER 12:43 → D.MS 12-17 16:52
PROVIDERS: Family Medicine; Orthopaedic Surgery; ADMIT Internal Medicine Nephrology; ATTEND Internal Medicine Nephrology
PROC: 0KBC0ZZ Excision of Right Hand Muscle, Open Approach (ICD-10-PCS; principal; 2019-12-15 14:15)
DX: L02.511 Cutaneous abscess of right hand (principal); F17.203 Nicotine dependence unspecified, with withdrawal; L03.011 Cellulitis of right finger; E87.6 Hypokalemia; D64.9 Anemia, unspecified; I10 Essential (primary) hypertension; Z95.0 Presence of cardiac pacemaker; I25.10 Atherosclerotic heart disease of native coronary artery without angina pectoris; G47.33 Obstructive sleep apnea (adult) (pediatric); K21.9 Gastro-esophageal reflux disease without esophagitis; M19.90 Unspecified osteoarthritis, unspecified site; B95.62 Methicillin resistant Staphylococcus aureus infection as the cause of diseases classified elsewhere

== ENCOUNTER 2020-04-07 20:41 | Emergency (ER) | payer MEDICARE ==
[~2020-04-07] VITALS: Ht 158.8 cm; Wt 61.4 kg
[~2020-04-07 20:41] MED LIST changes: +DOXYCYCLINE HY100 M2 PO; +METOPROLOL TART50 MG PO
[2020-04-07 21:03] VITALS: Ht 158.8 cm; Wt 61.4 kg
[2020-04-07] MEDS ORDERED: LISINOPRIL-HCT1 EAC8 PO (21:15)
[2020-04-07] MEDS ORDERED: NORVASC2.5 MG PO (21:16)
[2020-04-07 21:34] LABS: EOSINOPHILS 4.8 % (0-7); HEMATOCRIT 38.8 % (42.0-54.0); HEMOGLOBIN 12.8 g/dL (13.5-17.5); IMMATURE GRANULOCYTES 0.2 % (0-5); MCH 30.1 pg (26.0-34.0); MCV 91.3 fL (80.0-100.0); MEAN PLATELET VOLUME 10.1 fL (7.4-10.4); MONOCYTES 11.4 % (2-11); NEUTROPHILS 56.6 % (40-80); PLATELET COUNT 216 10x3/uL (130-400); RBC 4.25 10x6/uL (4.20-6.10); RDW 14.6 % (11.5-14.5)
[2020-04-07 21:40] LABS: CALC OSMOLALITY 277 mosm/kg (275-300); CALCIUM 8.3 mg/dL (8.5-10.1); CARBON DIOXIDE 29.6 mmol/L (21.0-32.0); CHLORIDE - SERUM 103 mmol/L (98-107); CREATININE - SERUM 1.4 mg/dL (0.6-1.3); GLUCOSE 107 mg/dL (74-106); SODIUM 139 mmol/L (136-145); UREA NITROGEN 13 mg/dL (7-18); eGFR NON AFRICAN AMERICAN 52 mL/min (90-120)
[2020-04-07 21:55] LABS: ALBUMIN 3.2 g/dL (3.4-5.0); ALKALINE PHOSPHATASE 89 U/L (30-120); ALT (SGPT) 11 U/L (10-68); BILIRUBIN - TOTAL 0.47 mg/dL (0.2-1.3); CKMB 0.7 U/L (0.0-3.6); CREATINE KINASE 65 UL (21-232); PROTEIN - SERUM 7.8 g/dL (6.4-8.2); TROPONIN-I < 0.017 ng/mL (0.000-0.060)
[2020-04-07 22:00] LABS: APTT 31.5 SECONDS (22.8-39.4); PROTIME 13.1 SECONDS (11.6-15.0)
[2020-04-07 22:40] VITALS: BP 113/64
== END 2020-04-07 22:40 | disposition home or self-care (01) ==
LOC: D.ER 20:41
PROVIDERS: Family Medicine
DX: R03.1 Nonspecific low blood-pressure reading (principal); K21.9 Gastro-esophageal reflux disease without esophagitis; I10 Essential (primary) hypertension; Z95.0 Presence of cardiac pacemaker; Z72.0 Tobacco use

== ENCOUNTER → 2020-07-01 09:21 | Outpatient (CLI) | payer MEDICARE ==
[2020-04-07 21:03] VITALS: BMI 24.3
[~2020-07-01 09:21] MED LIST changes: +LISINOPRIL-HCT1 EAC8 PO; +NORVASC2.5 MG PO
== END | disposition home or self-care (01) ==
LOC: D.NM 09:21
PROVIDERS: ATTEND Nurse Practitioner Acute Care
DX: R93.3 Abnormal findings on diagnostic imaging of other parts of digestive tract (principal); K29.00 Acute gastritis without bleeding; K22.70 Barrett's esophagus without dysplasia; Z12.11 Encounter for screening for malignant neoplasm of colon

== ENCOUNTER 2020-08-11 06:44 | Outpatient (CLI) | payer MEDICARE ==
[2020-04-07 21:03] VITALS: BMI 24.3
== END 2020-08-11 08:10 ==
LOC: D.OPS 06:44
PROVIDERS: ATTEND Surgery
DX: R13.10 Dysphagia, unspecified (principal)